=== PATIENT | male | born 1995 | race African-American/Black ===

== ENCOUNTER 2016-08-04 18:57 | Emergency (ER) | payer SELFPAY | END 2016-08-04 20:00 | disposition left against medical advice (07) | LOC: UCCORT 18:57 | DX: J34.89 Other specified disorders of nose and nasal sinuses (principal); Z53.21 Procedure and treatment not carried out due to patient leaving prior to being seen by health care provider ==

== ENCOUNTER 2019-05-01 14:48 | Emergency (ER) | payer OTHER ==
[2019-05-01 15:26] VITALS: BP 131/83
--- NOTE | 2019-05-01 15:45 | UC ---
Throat Pain/Nasal Milo HPI - HPI Summary HPI Summary: Sore throat and fever for 3 days. denies sick contacts, rash, joint swelling, hernandez. did nto measure temp. nothing makes it better or worse. has tried ibu but did not help. - History of Current Complaint Chief Complaint: UCGeneralIllness Stated Complaint: FEVER, SORE THROAT Time Seen by Provider: 05/01/19 15:26 Hx Obtained From: Patient Pain Intensity: 8 Pain Scale Used: 0-10 Numeric Cough: None Associated Signs & Symptoms: Negative: Dysphagia, Wheezing, Sinus Discomfort, Fever, Vomiting, Rash - Allergies/Home Medications Allergies/Adverse Reactions: Allergies Allergy/AdvReac Type Severity Reaction Status Date / Time MS Lactose Intolerance (GI) Allergy Vomiting Verified 05/01/19 15:26 [Lactose Intolerance (GI)] seasonal Allergy Congestion Uncoded 05/01/19 15:26 PMH/Surg Hx/FS Hx/Imm Hx - Additional Past Medical History Additional PMH: no chronic illness Previously Healthy: Yes - Surgical History Surgical History: None - Family History Known Family History: Positive: Hypertension - father Negative: Cardiac Disease, Diabetes - Social History Alcohol Use: None Substance Use Type: None Smoking Status (MU): Former Smoker Type: Cigars Amount Used/How Often: 1 daily Review of Systems All Other Systems Reviewed And Are Negative: Yes Constitutional: Positive: Fever Skin: Negative: Rash ENT: Positive: Sore Throat. Negative: Ear Ache, Sinus Congestion, Sinus Pain/ Tenderness Respiratory: Negative: Cough Gastrointestinal: Negative: Vomiting, Diarrhea, Nausea Neurological: Negative: Headache Physical Exam Triage Information Reviewed: Yes Appearance: Well-Appearing Vital Signs: Initial Vital Signs Temp 98.7 F 05/01/19 15:22 Pulse 88 05/01/19 15:22 Resp 16 05/01/19 15:22 BP 131/83 05/01/19 15:22 Pulse Ox 100 05/01/19 15:22 Vital Signs Reviewed: Yes Neck: Positive: Supple, Nontender, No Lymphadenopathy Respiratory Exam: Normal Cardiovascular Exam: Normal Neurological: Positive: Alert Skin: Negative: Rashes Throat Pain/Nasal Course/Dx - Course Course Of Treatment: viral sore throat, acute. exam essentially unremarkable. rapid strep neg. conservative management and for pain suggested ibu and cepacol. vitals good. - Differential Dx/Diagnosis Differential Diagnosis/HQI/PQRI: Pharyngitis, URI, Other Provider Diagnosis: Viral pharyngitis Discharge ED - Sign-Out/Discharge Documenting (check all that apply): Patient Departure All imaging exams completed and their final reports reviewed: No Studies - Discharge Plan Condition: Good Disposition: HOME Prescriptions: Dextromethorphan/Benzocaine [Cepacol Sorethroat-Cough Fatou] 1 each PO Q2HR #90 lozenge Patient Education Materials: Pharyngitis (ED) Referrals: No Primary Care Phys,NOPCP [Primary Care Provider] - Additional Instructions: You fortunately do not have Strep . - Billing Disposition and Condition Condition: GOOD Disposition: Home - Attestation Statements Provider Attestation: I was available for consult. This patient was seen by the JACQUI. The patient was not presented to , seen by or examined by -Misael Scanlno MD
== END 2019-05-01 15:49 | disposition home or self-care (01) ==
LOC: UCCORT 14:48
DX: J02.8 Acute pharyngitis due to other specified organisms (principal); B97.89 Other viral agents as the cause of diseases classified elsewhere; Z91.09 Other allergy status, other than to drugs and biological substances; Z91.011 Allergy to milk products; Z87.891 Personal history of nicotine dependence
CPT/HCPCS: 87651; 99212; G0463